=== PATIENT | female | born 1965 | race Caucasian/White ===

== ENCOUNTER → 2018-06-12 16:03 | Outpatient (CLI) | payer MEDICARE, SELFPAY ==
--- NOTE | 2018-06-12 16:08 | RAD_ITS ---
STUDY: X-RAY - CERVICAL SPINE REASON FOR EXAM: Female, 52 years old. Neck pain. No history of injury. TECHNIQUE: 4 view(s) of the cervical spine were obtained. COMPARISON: None FINDINGS: Normal anterior atlantoaxial articulation. Normal odontoid process. Normal cervical lordosis. Normal vertebral bodies and endplates. Normal disc space heights. C7 vertebra is suboptimally seen on the lateral view. The soft tissue structures are unremarkable. RAD/Cerv Spine 2 or 3 Views IMPRESSION: 1. No significant abnormality is seen. 2. If symptoms persist, MRI of the cervical spine is recommended. Electronically Signed: Vishnu Chin MD at 1:36 EDT Tel , Service support ,
--- NOTE | 2018-06-12 16:08 | RAD_ITS ---
STUDY: X-RAY - LUMBAR SPINE REASON FOR EXAM: Female, 52 years old. Pain. No recent injury. TECHNIQUE: 3 view(s) of the lumbar spine were obtained. COMPARISON: None FINDINGS: Normal lumbar lordosis. There is mild levoscoliosis. There is a normal alignment of the vertebrae. There is mild degenerative changes and Schmorl's nodes in the superior endplate of L2. There is narrowing of L4-L5 disc space. There is no demonstrated fracture. There are surgical clips in the right upper quadrant. RAD/Lumbar Spine 2 or 3 Views IMPRESSION: Degenerative changes of the lumbar spine as described above. Electronically Signed: Vishnu Chin MD at 1:49 EDT Tel , Service support ,
== END ==
PROVIDERS: Family Provider Family Medicine; PCP Family Medicine; Referring Provider Anesthesiology Pain Medicine; Visit Provider Anesthesiology Pain Medicine
DX: M54.2 Cervicalgia (principal); M54.9 Dorsalgia, unspecified
CPT/HCPCS: 72040; 72100

== ENCOUNTER → 2018-07-04 12:01 | Outpatient (CLI) | payer MEDICARE, SELFPAY ==
--- NOTE | 2018-07-04 12:06 | MRI_ITS ---
STUDY: MRI LUMBAR SPINE WITHOUT CONTRAST REASON FOR EXAM: Female, 52 years old. Low back pain radiating down the legs TECHNIQUE: Standardized fat and water weighted pulse sequences were obtained in the sagittal and axial planes. COMPARISON: None FINDINGS: T12-L1: Normal endplates. Normal disc height, hydration and morphology. Normal bilateral facet joints. Normal central canal and bilateral lateral recesses. Normal bilateral intervertebral neural foramina. Normal lumbar lordosis. There is no substantial scoliosis. Normal conus medullaris that terminates at T12-L1 L1-2: Normal endplates. Normal disc height, hydration and morphology. Normal bilateral facet joints. Normal central canal and bilateral lateral recesses. Normal bilateral intervertebral neural foramina. L2-3: Normal endplates. Normal disc height, hydration and morphology. Normal bilateral facet joints. Normal central canal and bilateral lateral recesses. Normal bilateral intervertebral neural foramina. L3-4: Normal endplates. Normal disc height, hydration and morphology. Normal bilateral facet joints. Normal central canal and bilateral lateral recesses. Normal bilateral intervertebral neural foramina. L4-5: Normal endplates. Normal disc height, desiccation and mild annular bulge. Mild facet arthropathy and thickening of ligamenta flava. Normal central canal. Moderate bilateral recess and mild neuroforaminal encroachment slightly greater on the right.. L5-S1: Normal endplates. Normal disc height, desiccation and tiny central disc protrusion.. Normal bilateral facet joints. Normal central canal and bilateral lateral recesses. Normal bilateral intervertebral neural foramina. Normal visualized sacral ala. Normal visualized paraspinous soft tissue structures. MRI/Spine Lumbar (Routine) IMPRESSION: Spinal stenosis at L4-5 slightly greater on the right secondary to bulging annulus and facet arthropathy and thickening of ligamenta flava. Tiny central disc protrusion at L5-S1 without spinal stenosis Electronically Signed: Bj Tucker MD at 20:28 EDT , Service support ,
== END ==
PROVIDERS: Family Provider Family Medicine; PCP Family Medicine; Referring Provider Anesthesiology Pain Medicine; Visit Provider Anesthesiology Pain Medicine
DX: M54.9 Dorsalgia, unspecified (principal); M79.606 Pain in leg, unspecified
CPT/HCPCS: 72148

== ENCOUNTER → 2018-12-02 12:00 | Outpatient (CLI) | payer MEDICARE, SELFPAY ==
[2018-12-02 13:08] LABS: Amphetamine Urine VISTA NEGATIVE (<1000 ng/mL); Barbiturate Urine VISTA NEGATIVE (< 200 ng/mL); Benzodiazepine Urine VISTA NEGATIVE (< 200 ng/mL); Cocaine Urine VISTA NEGATIVE (< 300 ng/mL); Ecstacy Urine VISTA POSITIVE (< 500 ng/mL); Methadone Urine VISTA NEGATIVE (< 300 ng/mL); PCP Urine VISTA NEGATIVE (< 25 ng/mL); THC Urine VISTA NEGATIVE (< 50 ng/mL); Vista UDS pH Range 6
== END ==
PROVIDERS: Family Provider Family Medicine; PCP Family Medicine; Referring Provider Anesthesiology Pain Medicine; Visit Provider Anesthesiology Pain Medicine
DX: F11.20 Opioid dependence, uncomplicated (principal)
CPT/HCPCS: 80307

== ENCOUNTER → 2020-03-08 11:30 | Outpatient (CLI) | payer MEDICARE, MEDICAID, SELFPAY ==
[2020-03-08 13:04] LABS: Amphetamine Urine VISTA NEGATIVE (<1000 ng/mL); Barbiturate Urine VISTA NEGATIVE (< 200 ng/mL); Benzodiazepine Urine VISTA NEGATIVE (< 200 ng/mL); Cocaine Urine VISTA NEGATIVE (< 300 ng/mL); Ecstacy Urine VISTA NEGATIVE (< 500 ng/mL); Methadone Urine VISTA NEGATIVE (< 300 ng/mL); PCP Urine VISTA NEGATIVE (< 25 ng/mL); THC Urine VISTA NEGATIVE (< 50 ng/mL); Vista UDS pH Range 6
== END ==
PROVIDERS: PCP Family Medicine; Referring Provider Anesthesiology Pain Medicine; Visit Provider Anesthesiology Pain Medicine
DX: F11.20 Opioid dependence, uncomplicated (principal)
CPT/HCPCS: 80307

== ENCOUNTER → 2020-11-30 16:58 | Outpatient (CLI) | payer MEDICARE, MEDICAID, SELFPAY ==
--- NOTE | 2020-11-30 17:02 | MRI_ITS ---
STUDY: MRI LUMBAR SPINE WITHOUT CONTRAST REASON FOR EXAM: Female, 55 years old. BACK AND LEG PAIN TECHNIQUE: Standardized fat and water weighted pulse sequences were obtained in the sagittal and axial planes. COMPARISON: X-ray 06/12/2018. FINDINGS: T12-L1: Normal endplates. Disc dehydration. Normal bilateral facet joints. Normal central canal and bilateral lateral recesses. Normal bilateral intervertebral neural foramina. Normal lumbar lordosis. There is no substantial scoliosis. Normal conus medullaris that terminates at the L1 level. L1-2: Normal endplates. Disc dehydration. Normal bilateral facet joints. Normal central canal and bilateral lateral recesses. Normal bilateral intervertebral neural foramina. L2-3: Normal endplates. Normal disc height, hydration and morphology. Normal bilateral facet joints. Normal central canal and bilateral lateral recesses. Normal bilateral intervertebral neural foramina. L3-4: Normal endplates. Normal disc height, hydration and morphology. Normal bilateral facet joints. Normal central canal and bilateral lateral recesses. Normal bilateral intervertebral neural foramina. L4-5: Normal endplates. Disc dehydration and mild disc space narrowing. Mild facet hypertrophy. Mild, noncompressive annular disc bulge. Normal central canal and bilateral lateral recesses. Mild foraminal encroachment due to disc bulge. L5-S1: Normal endplates. Disc dehydration. Normal bilateral facet joints. Normal central canal and bilateral lateral recesses. Normal bilateral intervertebral neural foramina. Normal visualized sacral ala. Normal visualized paraspinous soft tissue structures. MRI/Spine Lumbar (Routine) IMPRESSION: 1. Noncompressive L4-5 disc bulge. 2. Mild degenerative changes, detailed above. Electronically Signed: Edie Merida MD at 20:32 EDT Tel , Service support ,
== END ==
PROVIDERS: PCP Family Medicine; Referring Provider Anesthesiology Pain Medicine; Visit Provider Anesthesiology Pain Medicine
DX: M51.36 Other intervertebral disc degeneration, lumbar region (principal); M51.37 Other intervertebral disc degeneration, lumbosacral region; M51.27 Other intervertebral disc displacement, lumbosacral region
CPT/HCPCS: 72148

== ENCOUNTER → 2021-02-15 15:31 | Outpatient (CLI) | payer MEDICARE, MEDICAID, SELFPAY ==
[2021-02-15 16:45] LABS: Amphetamine Urine VISTA NEGATIVE (<1000 ng/mL); Barbiturate Urine VISTA NEGATIVE (< 200 ng/mL); Benzodiazepine Urine VISTA NEGATIVE (< 200 ng/mL); Cocaine Urine VISTA NEGATIVE (< 300 ng/mL); Ecstacy Urine VISTA POSITIVE (< 500 ng/mL); Methadone Urine VISTA NEGATIVE (< 300 ng/mL); PCP Urine VISTA NEGATIVE (< 25 ng/mL); THC Urine VISTA NEGATIVE (< 50 ng/mL); Vista UDS pH Range 5
== END ==
PROVIDERS: PCP Family Medicine; Referring Provider Anesthesiology Pain Medicine; Visit Provider Anesthesiology Pain Medicine
DX: F11.20 Opioid dependence, uncomplicated (principal)
CPT/HCPCS: 80307

== ENCOUNTER 2021-12-27 15:59 | Outpatient (CLI) | payer MEDICARE, MEDICAID, SELFPAY ==
[2021-12-27 17:04] LABS: Amphetamine Urine VISTA NEGATIVE (<1000 ng/mL); Barbiturate Urine VISTA NEGATIVE (< 200 ng/mL); Benzodiazepine Urine VISTA NEGATIVE (< 200 ng/mL); Cocaine Urine VISTA NEGATIVE (< 300 ng/mL); Ecstacy Urine VISTA POSITIVE (< 500 ng/mL); Methadone Urine VISTA NEGATIVE (< 300 ng/mL); PCP Urine VISTA NEGATIVE (< 25 ng/mL); THC Urine VISTA NEGATIVE (< 50 ng/mL); Vista UDS pH Range 5
== END 2021-12-27 23:59 | disposition home or self-care (01) ==
LOC: LAB 16:01
PROVIDERS: PCP Family Medicine; Referring Provider Anesthesiology Pain Medicine; Visit Provider Anesthesiology Pain Medicine
DX: F11.20 Opioid dependence, uncomplicated (principal)
CPT/HCPCS: 80307

== ENCOUNTER → 2022-10-25 | Outpatient (CLI) | payer MEDICARE, MEDICAID, SELFPAY ==
[2022-10-25 14:01] LABS: Amphetamine Urine VISTA NEGATIVE (<1000 ng/mL); Barbiturate Urine VISTA NEGATIVE (< 200 ng/mL); Benzodiazepine Urine VISTA NEGATIVE (< 200 ng/mL); Cocaine Urine VISTA NEGATIVE (< 300 ng/mL); Ecstacy Urine VISTA NEGATIVE (< 500 ng/mL); Methadone Urine VISTA NEGATIVE (< 300 ng/mL); PCP Urine VISTA NEGATIVE (< 25 ng/mL); THC Urine VISTA NEGATIVE (< 50 ng/mL); Vista UDS pH Range 7
== END | disposition home or self-care (01) ==
LOC: LAB 09:58
PROVIDERS: PCP Family Medicine; Referring Provider Anesthesiology Pain Medicine; Visit Provider Anesthesiology Pain Medicine
DX: F11.20 Opioid dependence, uncomplicated (principal)
CPT/HCPCS: 80307

== ENCOUNTER → 2023-10-04 | Outpatient (CLI) | payer MEDICARE, MEDICAID, SELFPAY ==
[2023-10-04 10:57] LABS: Amphetamine Urine VISTA POSITIVE (<1000 ng/mL); Barbiturate Urine VISTA NEGATIVE (< 200 ng/mL); Benzodiazepine Urine VISTA NEGATIVE (< 200 ng/mL); Cocaine Urine VISTA NEGATIVE (< 300 ng/mL); Ecstacy Urine VISTA NEGATIVE (< 500 ng/mL); Methadone Urine VISTA NEGATIVE (< 300 ng/mL); PCP Urine VISTA NEGATIVE (< 25 ng/mL); THC Urine VISTA NEGATIVE (< 50 ng/mL); Vista UDS pH Range 5
== END | disposition home or self-care (01) ==
PROVIDERS: PCP Family Medicine; Referring Provider Anesthesiology Pain Medicine; Visit Provider Anesthesiology Pain Medicine
DX: F11.20 Opioid dependence, uncomplicated (principal)
CPT/HCPCS: 80307

== ENCOUNTER 2023-11-09 11:47 | Day surgery (SDC) | payer MEDICARE, MEDICAID, SELFPAY ==
[2023-11-09] VITALS (8 sets, daily range): BP systolic 106–119; BP diastolic 71–91; PULSE 76–104; RESP 16–18; TEMP 36.2–36.7; O2SAT 95–100; BMI 25.0
[2023-11-09] MEDS: Lactated Ringers 1,000 ML 15 ML IV (12:32)
--- NOTE | 2023-11-09 13:30 | MASS_PTH ---
PATHOLOGY RESULTS PATIENT: [place] CAN LOC: [facility] U#:[id number] AGE/SX: 58/F ROOM: RE11/09/[address]: Dr. Faby Lr MD : 1965 BED: DIS: 11/09/2023 SPEC #: [id number] RECD: 11/12/23 08:16 STATUS: LOYD GONZALEZ #: [id number] NAOMIE: 11/09/23 13:[address]: Faby Lr DEPT: SURGICAL PATHOLOGY RECD BY: Vandana Duncan ENTERED: 11/12/23 08:19 SP TYPE: Mass OTHR DR: Dr. 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 Soft tissue mass right anterior thigh, excision: Mature adipose tissue (lipoma). B. Soft tissue mass superior left anterior thigh mass, excision: Mature adipose tissue (lipoma). C. Left lower anterior thyroid mass, excision: Mature adipose tissue (lipoma). AM:adithya 11/13/2023 MICROSCOPIC DESCRIPTION Slides are reviewed. GROSS DESCRIPTION A - Received in fixative is one container labeled with the patient's name and designated right thigh anterior mass. The specimen consists of an ovoid fragment of yellow tissue measuring 2.2 x 1.5 x 1.5 cm. Sections reveal homogenous yellow cut surfaces. The specimen is bisected and submitted in its entirety in one cassette. B - Received in fixative is one container labeled with the patient's name and designated left anterior thigh subcutaneous mass. The specimen consists of an ovoid fragment of yellow tissue measuring 2.5 x 1.5 x 1.2 cm. Sections reveal homogenous yellow cut surfaces. The specimen is bisected and submitted in its entirety in one cassette. C - Received in fixative is one container labeled with the patient's name and designated left thigh lower anterior subcutaneous mass. The specimen consists of an ovoid fragment of yellow tissue measuring 3.3 x 2.2 x 1.3 cm. Sections reveal homogenous yellow cut surfaces. The specimen is bisected and submitted in its entirety in two cassettes. / AM:adithya 11/12/2023 TC:1 CPT: 23377 x3
--- NOTE | 2023-11-09 13:51 | PCM.HP.BLA ---
History and Physical Date of Admission: 11/09/23 The patient is examined and there are no changes to the history and physical dated 11/02/2023. The patient has 3 subcutaneous masses of the upper thighs bilaterally that will be removed under general anesthetic. The specimens will be sent to pathology for evaluation. She was given ample opportunity for questions and informed consent was obtained. Assessment & Plan Assessment/Plan (1) Neoplasm of uncertain behavior of connective and other soft tissue: PLAN: Plan For excision subcutaneous masses anterior thighs
[2023-11-09] MEDS: Cefazolin 2 GM in 0.9% Normal Saline (100mL Bag) 100 ML IV (14:15)
[2023-11-09] MEDS: Lidocaine 1% /Epi 1:100 (20ml) 20 ML Vial (14:43)
--- NOTE | 2023-11-09 15:24 | DCINST_ITS ---
Discharge Instructions Dressing / Incision Additional Dressing/Incision Instructions:: Leave the dressings in place until seen in the office. May shower over the dressings, but do not scrub. Take the oral antibiotic (Keflex) 2 times a day until finished. Follow Up Care Please Follow Up With: Faby Lr MD Test Results: Test results from this visit will be discussed in further detail at your follow- up appointment, if applicable. Discharge Plan Admission Attending Provider: Faby Lr Primary Care Provider: Live Abbasi Discharge Orders/Prescriptions Prescriptions: New cephalexin 500 mg capsule 500 mg PO BID 7 Days Qty: 14 0RF No Action duloxetine [Cymbalta] 60 mg capsule,delayed release(DR/EC) 60 mg PO BID Aimovig Autoinjector 70 mg/mL auto-injector 70 mg subcut QMONTH melatonin 10 mg tablet 20 mg PO HS PRN (Reason: sleep) Prolia 60 mg/mL syringe 60 mg subcut [id number] diclofenac sodium 1 % gel 2 g topical ONCE Rx Instructions: apply to single elbow, wrist or hand; for hand includes palm/fingers/back of hand hydroxychloroquine 200 mg tablet 200 mg PO DAILY omeprazole 40 mg capsule,delayed release(DR/EC) 40 mg PO BID valacyclovir 500 mg tablet 500 mg PO DAILY estradiol 0.5 mg tablet 0.5 mg PO DAILY Rx Instructions: off 5 days; repeat cycle hydrocodone-acetaminophen 5-325 mg tablet 1 tab PO BID PRN (Reason: pain) meloxicam 15 mg tablet 15 mg PO DAILY cyclobenzaprine 5 mg tablet 5 mg PO TID PRN (Reason: muscle spasm) tolterodine 4 mg capsule,extended release 24hr 4 mg PO DAILY famotidine 20 mg tablet 40 mg PO DAILY Xtampza ER 18 mg cap,sprinkl,ER12hr(DONT CRUSH) 18 mg PO BID Rx Instructions: must administer with a meal/food infliximab [Remicade] 100 mg recon soln 100 mg IV .Q6MO Referrals / Follow Up: Live Abbasi MD [Primary Care Provider] - Disposition Disposition (needs filled in before D/C Order can be placed): Home, Self Care
--- NOTE | 2023-11-09 15:28 | OP.PCM_ITS ---
Problems Associated Problem List Diagnoses (1) Neoplasm of uncertain behavior of connective and other soft tissue: Report of Operation Date of Procedure: 11/09/23 Pre-Operative Diagnosis: Subcutaneous mass left thigh x 2 and right thigh x 1 Post-Operative Diagnosis: Same Surgery/Procedure Performed:: Excision subcutaneous mass of left thigh x 2 (3.5 cm, 2.5 cm); excision subcutaneous mass right thigh (2.5 cm) Surgeon: Faby Lr Type of Anesthesia: General Specimen's removed: Subcutaneous masses x 3 Estimated Blood Loss (mL): Minimal Description of Procedure: The patient presents with tender subcutaneous masses of her anterior thighs. She presents for excision of the masses with submission for pathologic evaluation. The patient is aware that there will be a resulting scar from the surgery. She is marked in the preop holding area prior to surgery. The patient is brought to the operating room and is placed under general anesthesia in the supine position. The thighs are prepped and draped in the usual sterile fashion. 1% Xylocaine with epinephrine is used to inject the pe riphery of the sites to facilitate hemostasis. An incision is made in a longitudinal fashion overlying the mass and carried down through the subcutaneous tissue until the mass was encountered. The mass was then enucleated from its bed. These were passed off the operative field to separate specimens to be sent to pathology. Hemostasis is controlled with electrocautery. The incisions are then closed in layers using Vicryl suture in the subcutaneous tissue and dermis. Skin edges are approximated with a running subcuticular Vicryl suture. Dermabond is applied to the incision along with Steri-Strips and a Tegaderm. The identical procedure was performed on all 3 sites. She tolerated the procedure well was taken to the recovery area in an awake and stable condition. Needle and sponge counts are correct. Complications None Admit VTE Documentation VTE Mechan Device Prophylaxis: SCD's
== END 2023-11-09 17:02 | disposition home or self-care (01) ==
LOC: SDC 11:48 → AC 11:50
PROVIDERS: PCP Family Medicine; Referring Provider Plastic Surgery; Visit Provider Plastic Surgery
PROC: (CPT 27337; principal; 2023-11-09 13:15)
DX: D17.24 Benign lipomatous neoplasm of skin and subcutaneous tissue of left leg (principal)
CPT/HCPCS: 27337; 00400; 88304; J7120; J2405

== ENCOUNTER → 2024-06-23 | Outpatient (CLI) | payer MEDICARE, MEDICAID, SELFPAY ==
[2024-06-23 11:12] LABS: OXY Internal Control LINE = VALID (VALID); Oxycodone Drug Screen Positive (<100 ng/mL)
[2024-06-23 11:39] LABS: Amphetamine Urine VISTA NEGATIVE (<1000 ng/mL); Barbiturate Urine VISTA NEGATIVE (< 200 ng/mL); Benzodiazepine Urine VISTA NEGATIVE (< 200 ng/mL); Cocaine Urine VISTA NEGATIVE (< 300 ng/mL); Ecstacy Urine VISTA NEGATIVE (< 500 ng/mL); Methadone Urine VISTA NEGATIVE (< 300 ng/mL); PCP Urine VISTA NEGATIVE (< 25 ng/mL); THC Urine VISTA NEGATIVE (< 50 ng/mL); Vista UDS pH Range 6
== END | disposition home or self-care (01) ==
PROVIDERS: PCP Family Medicine; Referring Provider Anesthesiology Pain Medicine; Visit Provider Anesthesiology Pain Medicine
DX: F11.20 Opioid dependence, uncomplicated (principal)
CPT/HCPCS: 80307; 80365; G0480

== ENCOUNTER → 2024-08-28 | Outpatient (CLI) | payer MEDICARE, MEDICAID, SELFPAY ==
--- NOTE | 2024-08-28 07:21 | MRI_ITS ---
STUDY: MRI CERVICAL SPINE WITHOUT CONTRAST REASON FOR EXAM: Female, 58 years old. PAIN IN NECK [place] YEARS, H/O WHIPLASH, PAIN INTO BILATERAL ARMS, NO SURGERY TECHNIQUE: Standardized fat and water weighted pulse sequences were obtained in the sagittal and axial planes. COMPARISON: X-rays of the cervical spine dated June 12, 2018 and August 14, 2024. FINDINGS: Normal foramen magnum and brainstem-cervical cord junction. Normal craniovertebral junction. Normal anterior atlantoaxial articulation. Normal odontoid process. There is straightening of the normal cervical lordosis. No marrow edema or fracture or compression informed is present. Diffuse disc desiccation is present at all levels. C2-3: Normal endplates. Normal disc height and morphology. Normal central canal and intervertebral neural foramina. C3-4: Normal endplates. Mild posterior disc space narrowing and annular bulging. Moderate left foraminal stenosis with nerve root compression due to combined uncovertebral facet joint hypertrophy. Mild right foraminal stenosis. Normal central canal. C4-5: Normal endplates. Minimal posterior disc space narrowing and slight annular bulging. Normal central canal and left neural foramen. Moderate right foraminal stenosis with nerve root compression due to uncovertebral facet joint hypertrophy. C5-6: Normal endplates. Diffuse disc desiccation with moderate disc space narrowing and a posterior annular bulge. Superimposed right paracentral disc protrusion contributing to compression of the exiting nerve root proximal to the neural foramen. Mild focal central canal stenosis is present. Moderate to severe right foraminal stenosis with nerve root compression due to uncovertebral facet joint hypertrophy. Mild left foraminal stenosis. C6-7: Normal endplates. Minimal posterior disc space narrowing with slight annular bulging. Normal central canal and intervertebral neural foramina. C7-T1: Normal endplates. Normal disc height and morphology. Normal central canal and intervertebral neural foramina. Normal cervical cord. There is no demonstrated cervical cord demyelinating process, syrinx, or cord edema.. Normal visualized soft tissue structures. MRI/Spine Cervical (Routine) IMPRESSION: 1. Multilevel degenerative changes, as described above. Electronically Signed: Pranav Matta MD at 14:28 EST ,
== END | disposition home or self-care (01) ==
LOC: MRI 07:17
PROVIDERS: PCP Family Medicine; Referring Provider Nurse Practitioner Family; Visit Provider Nurse Practitioner Family
DX: G95.9 Disease of spinal cord, unspecified (principal)
CPT/HCPCS: 72141

== ENCOUNTER → 2024-12-10 | Outpatient (CLI) | payer MEDICARE, MEDICAID, SELFPAY ==
[2024-12-10 15:32] LABS: Amphetamine Urine NEGATIVE (<1000 ng/mL); Barbiturate Urine NEGATIVE (< 200 ng/mL); Benzodiazepine Urine NEGATIVE (< 200 ng/mL); Buprenorphine Urine NEGATIVE (< 200 ng/mL); Cocaine Urine NEGATIVE (< 300 ng/mL); Fentanyl, Urine NEGATIVE; Methadone Urine NEGATIVE (< 300 ng/mL); Opiates Urine NEGATIVE (< 300 ng/mL); Oxycodone, Urine PRESUMPTIVE POSITIVE (< 100 ng/mL); PCP Urine NEGATIVE (< 25 ng/mL); THC Urine NEGATIVE (< 50 ng/mL)
== END | disposition home or self-care (01) ==
LOC: LAB 10:05
PROVIDERS: PCP Family Medicine; Referring Provider Anesthesiology Pain Medicine; Visit Provider Anesthesiology Pain Medicine
DX: F11.20 Opioid dependence, uncomplicated (principal)
CPT/HCPCS: 36415; 80307